=== PATIENT | female | born 1980 | race Caucasian/White ===

== ENCOUNTER 2021-11-13 07:45 | Emergency (ER) | payer OTHER, SELFPAY ==
[2021-11-13 07:47] VITALS: BP 151/100; PULSE 125; RESP 14; TEMP 36.6; O2SAT 100
[2021-11-13 08:18] LABS: Appearance Urine Slightly Cloudy (Clear); Bilirubin Urine 1+ (Negative); Blood Urine 2+ (Negative); Color Urine Yellow (Yellow); Glucose Urine UA Negative (Negative); Ketones Urine 2+ mg/dL (Negative); Leukocyte Esterase Ur Negative LEU/UL (Negative); Nitrate Urine Negative (Negative); Protein Urine 1+ mg/dL (Negative); Specific Grav Ur >= 1.030 (1.001-1.035); Urobilinogen Urine 0.2 mg/dL (<2.0)
[2021-11-13 08:30] LABS: Mucus Urine Heavy /lpf; Squamous Epithelial Cell Urine Many /hpf (Few); WBC Urine 0-3 /hpf
[2021-11-13 08:40] LABS: Add Urine Microscopic? YES
--- NOTE | 2021-11-13 09:15 | ED.FEMALEGU ---
HPI - Female Genitourinary General Chief complaint: Urogenital-Female Stated complaint: uti Time Seen by Provider: 11/13/21 08:18 History of Present Illness HPI Narrative: Pt presents with dysuria and frequency and suprapubic abdominal pain off and on for 3 weeks. Pt has been on macrobid and bactrim which seem to improve her symptoms but they don't resolve. Pt has had work up done at other institutions son urine culture results not available. Pt says that her initial UA's have not been showing bacteria but she has been growing organisms E Coli at first and multiple normal cally secong time. Unknown sensitivities. Related Data Allergies Allergy/AdvReac Type Severity Reaction Status Date / Time clindamycin Allergy Mild Diarrhea Unverified 11/13/21 07:57 Penicillins Allergy Mild Rash Unverified 11/13/21 07:57 Review of Systems Review of Systems: All systems reviewed & are unremarkable except as noted in HPI and below Exam Const: General: healthy appearing Nutritional Appearance: well nourished Orientation/consciousness: patient oriented x3 Limitations: no limitations HENMT: Head: normal to inspection Eyes: Pupils: Equal, round and reactive pupils present EOM: EOMs intact bilaterally Neck: Neck: normal visual inspection Chest: Chest palpation & inspection: normal inspection of the chest Resp: Effort & Inspection: normal respiratory effort Auscultation: clear to auscultation bilaterally Cardio: Rate: regular rate Rhythm: regular rhythm GI: GI Palp: Yes Soft to palpation and Yes Tenderness to palpation present (GI) (minimal suprapubic tenderness) Auscultation: normal bowel sounds : General: Yes Bladder palpation abnormal and Yes no CVA tenderness Back/Spine/Pelvis: Back: no CVA tenderness Skin: General skin exam: normal color Rashes: no rashes Neuro: General: patient oriented x3 Cranial nerves: Yes Nystagmus not present Speech: normal speech Extrem: General: normal to inspection and no clubbing, cyanosis or edema Psych: Appearance: grossly normal Mental Status: mental status grossly normal Affect: normal affect Attitude: cooperative Course Vital Signs Vital signs: Vital Signs Temperature 97.9 F 11/13/21 07:47 Pulse Rate 125 H 11/13/21 07:47 Respiratory Rate 14 11/13/21 07:47 Blood Pressure 151/100 H 11/13/21 07:47 Pulse Oximetry 100 11/13/21 07:47 Oxygen Delivery Room Air 11/13/21 07:47 Temperature 97.9 F 11/13/21 07:47 Pulse Rate 125 H 11/13/21 07:47 Respiratory Rate 14 11/13/21 07:47 Blood Pressure 151/100 H 11/13/21 07:47 Pulse Oximetry 100 11/13/21 07:47 Oxygen Delivery Room Air 11/13/21 07:47 MDM - Female Genitourinary Lab Data Labs: Lab Results 11/13/21 Range/Units 08:07 Urine Color Yellow (Yellow) Urine Appearance Slightly cloudy (Clear) Urine pH 6.0 (5.0-9.0) Ur Specific [place] >= 1.030 (1.001-1.035) Urine Protein 1+ H (Negative) mg/dL Urine Glucose (UA) Negative (Negative) mg/dL Urine Ketones 2+ H (Negative) mg/dL Ur Blood (Man) 2+ H (Negative) Urine Nitrate Negative (Negative) Urine Bilirubin 1+ H (Negative) Urine Urobilinogen 0.2 (<2.0) mg/dL Leukocyte Esterase Rfl Negative (Negative) DEBO/UL Urine RBC 6-10 H (0-2) /hpf Urine WBC 0-3 /hpf Ur Squamous Epith Cells Many H (Few) /hpf Urine Mucus Heavy H /lpf Discharge Plan Discharge Clinical Impression: Cystitis Patient Disposition: Home, Self-Care Condition: Stable Instructions: Antibiotic Form, Dysuria (ED) Prescriptions: New cefadroxil 500 mg capsule 500 mg PO BID Qty: 28 0RF phenazopyridine [Pyridium] 200 mg tablet 200 mg PO TID Qty: 6 0RF Follow-up/Referrals: Raji,Tamie Ingram, [employer]- [Primary Care Provider] - Kelvin Mays MD [Physician] -
== END 2021-11-13 09:48 | disposition home or self-care (01) ==
PROVIDERS: Emergency Provider Emergency Medicine; PCP Nurse Practitioner Family
DX: N30.90 Cystitis, unspecified without hematuria (principal)
CPT/HCPCS: 81001; 99283

== ENCOUNTER 2022-08-08 14:22 | Outpatient (CLI) | payer OTHER, SELFPAY ==
--- NOTE | ~2022-08-08 | MM_ITS ---
EXAMINATION: MM screening cas BI w tavares HISTORY: Screening mammogram TECHNIQUE: Craniocaudal and mediolateral oblique 3-D tomosynthesis images were obtained and synthetic 2-D images were generated. Bilateral rotated lateral CC views. CAD analysis was submitted and inter preted. COMPARISON: No prior mammogram is available for comparison at this institution. BREAST PARENCHYMAL COMPOSITION: The breasts are extremely dense, which lowers the sensitivity of mamm ography. FINDINGS: Bilateral breast masses are suggested. Breast masses may be obscured by the very dense tiss ue. Bilateral complete breast ultrasound examination is recommended. No architectural distortion or malignant calcification, skin thickening or retraction is detected. IMPRESSION: 1. Possible bilateral breast masses 2. Bilateral complete breast ultrasound examination is recommended. BI-RADS Category 0: Incomplete: Needs additional imaging evaluation. Reviewed, dictated and finalized at location A.
== END 2022-08-08 14:23 | disposition home or self-care (01) ==
PROVIDERS: PCP Nurse Practitioner Family; Visit Provider Obstetrics & Gynecology
DX: Z12.31 Encounter for screening mammogram for malignant neoplasm of breast (principal); R92.8 Other abnormal and inconclusive findings on diagnostic imaging of breast
CPT/HCPCS: 77063; 77067

== ENCOUNTER 2022-09-22 15:03 | Outpatient (CLI) | payer OTHER, SELFPAY ==
--- NOTE | ~2022-09-22 | US_ITS ---
US breast BI complete INDICATION: Possible bilateral breast masses by mammography TECHNIQUE: Dedicated complete bilateral breast ultrasound including all 4 quadrants in the subareolar locations COMPARISON: Screening mammogram dated 08/08/2022 FINDINGS: The breasts are composed of normal heterogeneous echotexture without focal solid or cystic mass. IMPRESSION: 1: Normal bilateral breast ultrasound. BI-RADS CATEGORY 1 - NEGATIVE Reviewed, dictated and finalized at location A.
== END 2022-09-22 15:04 | disposition home or self-care (01) ==
PROVIDERS: PCP Nurse Practitioner Family; Visit Provider Obstetrics & Gynecology
DX: N63.10 Unspecified lump in the right breast, unspecified quadrant (principal); N63.20 Unspecified lump in the left breast, unspecified quadrant
CPT/HCPCS: 76641